=== PATIENT | female | born 1940 | race Caucasian/White ===

== ENCOUNTER 2021-06-24 17:09 | Inpatient (IN) ==
[2021-06-25] MEDS: Sucralfate 1 GM TABLET PO SCH (21:38)
[2021-06-25] MEDS: Divalproex (12 HR) 250 MG TABLET PO SCH (21:38)
[2021-06-25] MEDS: Ranolazine 500 MG TAB.ER.12H PO SCH (21:38)
[2021-06-25] MEDS: QUEtiapine Fumarate 25 MG TABLET PO SCH (21:38)
[2021-06-26] MEDS ORDERED: *HR* Enoxaparin 40 MG/0.4 ML SYRINGE SQ SCH (07:00)
[2021-06-26 08:42] LABS: Basophils # 0.1 K/mcL (0.0-0.2); Basophils % 0.8 %; Eosinophils # 0.2 K/mcL (0.0-0.6); Eosinophils % 3.8 %; Hematocrit 41.1 % (35.3-44.9); Immature Granulocytes % 1.1 % (0-4); Lymphocytes # 1.2 K/mcL (0.6-4.6); Lymphocytes % 19.9 %; Mean Corpuscular HGB Conc 31.6 g/dL (31.6-35.5); Mean Corpuscular Hemoglobin 28.3 pg (28.0-33.3); Mean Corpuscular Volume 89.3 fL (83.0-100.0); Mean Platelet Volume 11.1 fL (9.4-12.4); Monocytes # 0.5 K/mcL (0.0-1.3); Monocytes % 8.7 %; Platelet Count 213 K/mcL (140-400); Segmented Neutrophils % 65.7 %; White Blood Count 6.1 K/mcL (4.3-11.1)
[2021-06-26 08:54] LABS: BUN/Creatinine Ratio 26 (6-26); Blood Urea Nitrogen 23 mg/dL (8-23); Carbon Dioxide 33 mEq/L (23-29); Chloride 98 mEq/L (98-107); Glucose 92 mg/dL (70-105); Osmolality,Calculated 287 (280-300); Potassium 3.9 mEq/L (3.5-5.1); Sodium 137 mEq/L (136-145); eGFR For African Americans > 60 (> 60); eGFR For Non-African Americans > 60 (> 60)
[2021-06-26] MEDS ORDERED: lisinopriL 10 MG TABLET PO SCH (09:00)
[2021-06-26] MEDS: QUEtiapine Fumarate 25 MG TABLET PO SCH ×2 (10:19→19:29)
[2021-06-26] MEDS: Aspirin 81 MG TAB.CHEW PO SCH (10:19)
[2021-06-26] MEDS: Metoprolol XL (24 HR) Succ 25 MG TAB.ER.24H PO SCH (10:19)
[2021-06-26] MEDS: Ranolazine 500 MG TAB.ER.12H PO SCH ×2 (10:20→19:29)
[2021-06-26] MEDS: Sucralfate 1 GM TABLET PO SCH ×3 (10:20→19:29)
[2021-06-26] MEDS: Furosemide 20 MG TABLET PO SCH (10:20)
[2021-06-26] MEDS: Divalproex (12 HR) 250 MG TABLET PO SCH (19:29)
[2021-06-27] MEDS: *HR* Enoxaparin 30 MG/0.3 ML SYRINGE SQ SCH (06:19)
[2021-06-27] MEDS: Furosemide 20 MG TABLET PO SCH (08:53)
[2021-06-27] MEDS: lisinopriL 10 MG TABLET PO SCH (08:53)
[2021-06-27] MEDS: Ranolazine 500 MG TAB.ER.12H PO SCH ×2 (08:55→19:31)
[2021-06-27] MEDS: Aspirin 81 MG TAB.CHEW PO SCH (08:55)
[2021-06-27] MEDS: Metoprolol XL (24 HR) Succ 25 MG TAB.ER.24H PO SCH (08:55)
[2021-06-27] MEDS: QUEtiapine Fumarate 25 MG TABLET PO SCH ×2 (08:55→19:31)
[2021-06-27] MEDS: Sucralfate 1 GM TABLET PO SCH ×3 (08:56→19:31)
[2021-06-27] MEDS: Divalproex (12 HR) 250 MG TABLET PO SCH (19:31)
[2021-06-28] MEDS: *HR* Enoxaparin 30 MG/0.3 ML SYRINGE SQ SCH (08:01)
[2021-06-28] MEDS: Sucralfate 1 GM TABLET PO SCH ×3 (08:43→19:18)
[2021-06-28] MEDS: lisinopriL 10 MG TABLET PO SCH (08:43)
[2021-06-28] MEDS: QUEtiapine Fumarate 25 MG TABLET PO SCH ×2 (08:43→19:18)
[2021-06-28] MEDS: Metoprolol XL (24 HR) Succ 25 MG TAB.ER.24H PO SCH (08:43)
[2021-06-28] MEDS: Ranolazine 500 MG TAB.ER.12H PO SCH ×2 (08:43→19:18)
[2021-06-28] MEDS: Aspirin 81 MG TAB.CHEW PO SCH (08:43)
[2021-06-28] MEDS: Furosemide 20 MG TABLET PO SCH (10:24)
[2021-06-28] MEDS: Divalproex (12 HR) 250 MG TABLET PO SCH (19:18)
[2021-06-29] MEDS: *HR* Enoxaparin 30 MG/0.3 ML SYRINGE SQ SCH (07:34)
[2021-06-29] MEDS ORDERED: lisinopriL 10 MG TABLET PO SCH (09:00)
[2021-06-29] MEDS: Aspirin 81 MG TAB.CHEW PO SCH (09:31)
[2021-06-29] MEDS: Metoprolol XL (24 HR) Succ 25 MG TAB.ER.24H PO SCH (09:32)
[2021-06-29] MEDS: Sucralfate 1 GM TABLET PO SCH ×3 (09:32→20:05)
[2021-06-29] MEDS: Ranolazine 500 MG TAB.ER.12H PO SCH ×2 (09:32→20:05)
[2021-06-29] MEDS: QUEtiapine Fumarate 25 MG TABLET PO SCH ×2 (09:32→20:05)
[2021-06-29 15:01] VITALS: PULSE 71; RESP 18
[2021-06-29] MEDS: Divalproex (12 HR) 250 MG TABLET PO SCH (20:05)
[2021-06-30 07:49] VITALS: BP 131/79; TEMP 98.3; O2SAT 98
[2021-06-30] MEDS: Aspirin 81 MG TAB.CHEW PO SCH (08:06)
[2021-06-30] MEDS: QUEtiapine Fumarate 25 MG TABLET PO SCH (08:06)
[2021-06-30] MEDS: Ranolazine 500 MG TAB.ER.12H PO SCH (08:06)
[2021-06-30] MEDS: Metoprolol XL (24 HR) Succ 25 MG TAB.ER.24H PO SCH (08:08)
[2021-06-30] MEDS: Sucralfate 1 GM TABLET PO SCH ×2 (08:08→14:04)
[2021-06-30] MEDS: *HR* Enoxaparin 30 MG/0.3 ML SYRINGE SQ SCH (08:08)
[2021-06-30] MEDS ORDERED: lisinopriL 5 MG TABLET PO SCH (09:00)
== END 2021-06-30 16:58 | disposition home health service (06) | DRG 56 ==
LOC: INPPIK → OBSVTOIN 06-25 20:32
PROVIDERS: ADMIT Family Medicine; ATTEND Family Medicine